=== PATIENT | female | born 1965 | race Two or more races ===

== ENCOUNTER 2019-08-11 13:51 | Emergency (ER) | payer OTHER ==
--- NOTE | 2019-08-11 14:01 | PDOC ---
Rapid Medical Evaluation Time Seen by Provider: 08/11/19 13:57 Medical Evaluation: 08/11/19 13:58 CC: chest tightness without nausea but c/o of tingling to chin, left arm Exam: vss, ekg nsr Plan: ekg, labs, cxr Discharge Disposition - Diagnosis Chest tightness - Referrals - Patient Instructions - Post Discharge Activity
[2019-08-11 14:02] VITALS: BMI 25.8
[2019-08-11] MEDS ORDERED: MAG HYDROX/AL HYDROX/SIMETH 30 ML UNIT-DOSE CUP PO ONE (14:16)
[2019-08-11] MEDS ORDERED: FAMOTIDINE 20 MG/50 ML IVPB 20 MG/50 ML MG IVPB ONE ×2 (14:16→14:29)
--- NOTE | 2019-08-11 14:26 | PDOC ---
History of Present Illness - General Chief Complaint: Chest Pain Stated Complaint: CHEST PAIN Time Seen by Provider: 08/11/19 13:57 History Source: Patient Exam Limitations: Clinical Condition - History of Present Illness Initial Comments: 08/11/19 14:21 Patient with past medical history of hypertension on lisinopril and GERD on omeprazole presented with complaint of mild epigastric pain with burning sensation after chest going up the throat since this morning. Patient been taking omeprazole sporadically given by PCP for acid reflux. Patient reported she came in today because she was feeling some mild chest tightness this morning. Denies nausea, vomiting, dizziness, sweats, arm weakness, fever or chills. Denies any other symptoms Is this a multiple visit Asthma Patient?: No Timing/Duration: 1-3 hours Past History - Medical History Allergies/Adverse Reactions: Allergies Allergy/AdvReac Type Severity Reaction Status Date / Time No Known Allergies Allergy Verified 08/11/19 14:02 Home Medications: Ambulatory Orders Famotidine [Pepcid -] 40 mg PO DAILY #7 tablet 08/11/19 Lisinopril/Hydrochlorothiazide [Lisinopril-Hctz 10-12.5 mg Tab] 1 each PO DAILY 08/11/19 COPD: No - Psycho-Social/Smoking History Smoking History: Unknown if ever smoked Review of Systems - Review of Systems Able to Perform ROS?: Yes Is the patient limited [place] Citizen proficient: No Constitutional: No: Chills, Fever, Malaise HEENTM: No: Symptoms Reported, See HPI, Eye Pain, Blurred Vision, Tearing, Recent change in vision, Double Vision, Cataracts, Ear Pain, Ocular Prothesis, Ear Discharge, Nose Pain, Nose Congestion, Tinnitus, Nose Bleeding, Hearing Loss, Throat Pain, Throat Swelling, Mouth Pain, Dental Problems, Difficulty Swallowing, Mouth Swelling, Other Respiratory: No: Symptoms reported, See HPI, Cough, Orthopnea, Shortness of Breath, SOB with Exertion, SOB at Rest, Stridor, Wheezing, Productive cough, Hemoptysis, Other Cardiac (ROS): Yes: Symptoms Reported, See HPI, Chest Tightness. No: Chest Pain, Edema, Irregular Heart Rate, Lightheadedness, Palpitations, Syncope, Other ABD/GI: Yes: Symptoms Reported, See HPI, Abdominal cramping (epigastric pain). No: Abdominal Distended, Blood Streaked Bowels, Constipated, Diarrhea, Difficulty Swallowing, Nausea, Rectal Bleeding, Vomiting, Indigestion : No: Symptoms Reported, Discharge, Frequency, Urgency Neurological: No: Symptoms reported, See HPI, Headache, Numbness, Paresthesia, Pre-Existing Deficit, Weakness, Unsteady Gait, Dizziness All Other Systems: Reviewed and Negative *Physical Exam - Vital Signs Last Vital Signs Temp Pulse Resp BP Pulse Ox 98.2 F 64 16 128/77 100 08/11/19 14:08/11/19 14:08/11/19 14:08/11/19 14:08/11/19 14:00 - Physical Exam 08/11/19 14:31 GENERAL: Well developed, well nourished. Awake and alert. No acute distress. HEENT: Normocephalic, atraumatic. PERRLA, EOMI. No conjunctival pallor. Sclera are non-icteric. Moist mucous membranes. Oropharynx is clear. NECK: Supple. Full ROM. CARDIOVASCULAR: Regular rate and rhythm. No murmurs, rubs, or gallops. Distal pulses are 2+ and symmetric. PULMONARY: No evidence of respiratory distress. Lungs clear to auscultation bilaterally. No wheezing, rales or rhonchi. ABDOMINAL: Soft. Mild epigastric tenderness. Non-distended. No rebound or guarding. No organomegaly. Normoactive bowel sounds. MUSCULOSKELETAL Normal range of motion at all joints. SKIN: Warm and dry. Normal capillary refill. No rashes. No jaundice. No cyanosis NEUROLOGICAL: Alert, awake, appropriate. Gait is normal without ataxia. PSYCHIATRIC: Cooperative. Good eye contact. Appropriate mood General Appearance: Yes: Nourished, Appropriately Dressed. No: Apparent Distress ED Treatment Course - LABORATORY CBC & Chemistry Diagram: 08/11/19 14:25 08/11/19 14:25 Medical Decision Making - Medical Decision Making 08/11/19 14:26 Patient with past medical history of hypertension on lisinopril and GERD on omeprazole presented with complaint of mild epigastric pain with burning sensation after chest going up the throat since this morning. Patient been taking omeprazole sporadically given by PCP for acid reflux. Patient reported she came in today because she was feeling some mild chest tightness this morning. Denies nausea, vomiting, dizziness, sweats, arm weakness, fever or chills. Denies any other symptoms Exam significant for mild epigastric tenderness without guarding or rebound otherwise unremarkable exam. Patient in no acute distress. Normal cardio and l dmitri exam. Patient symptoms likely acid reflux versus less likely cardiogenic pain. We will do 2 Trop cardiac work-up to make sure there is no cardiogenic symptoms. EKG shows normal sinus rhythm. Chest x-ray shows no acute abnormality. Pepcid 20 mg IV and Maalox 30 mL p.o. ordered for epigastric pain for likely GERD. Treat based on lab results 08/11/19 15:57 CBC and chemistry lab unremarkable. Cardiac profile negative. Patient asymptomatic now. Will repeat second troponin in 3 hours from first lab for confirmatory negative cardiac profile lab 08/11/19 18:21 Repeat cardiac profile negative. Patient asymptomatic now and stable for discharge with PCP follow-up as symptoms likely from GERD and will switch from omeprazole to Pepcid. Discharge - Discharge Information Problems reviewed: Yes Clinical Impression/Diagnosis: Chest tightness GERD (gastroesophageal reflux disease) Qualifiers: Esophagitis presence: esophagitis presence not specified Qualified Code(s): K21.9 - Gastro-esophageal reflux disease without esophagitis Condition: Stable Disposition: HOME - Admission No - Additional Discharge Information Prescriptions: Famotidine [Pepcid -] 40 mg PO DAILY #7 tablet - Follow up/Referral Referrals: Jamar Aguayo MD [Staff Physician] - - Patient Discharge Instructions Patient Printed Discharge Instructions: DI for Atypical Chest Pain, DI for Gastroesophageal Reflux Disease (GERD) Additional Instructions: Your blood work was normal. Your EKG was normal and a chest x-ray was normal as well. Chest discomfort is likely from acid reflux. Take prescribed medication as prescribed for the next 7 days and switch back to your regular omeprazole as directed medication after finishing Pepcid. Follow-up with your primary care - Post Discharge Activity
[2019-08-11] MEDS ORDERED: MAG HYDROX/AL HYDROX/SIMETH 30 ML UNIT-DOSE CUP ONE (14:29)
[2019-08-11 14:45] LABS: BASO % 0.3 % (0-2.0); EOS % 0.5 % (0-4.5); HEMATOCRIT 37.5 % (32.4-45.2); HEMOGLOBIN 12.8 GM/dL (10.7-15.3); LYMPH % 29.4 % (8-40); MCH 31.9 pg (25.7-33.7); MCHC 34.2 g/dl (32.0-36.0); MEAN CELL VOLUME 93.3 fl (80-96); MEAN PLT VOLUME 8.6 fl (7.5-11.1); MONO % 4.9 % (3.8-10.2); NEUT % 64.9 % (42.8-82.8); PLATELET COUNT 279 K/MM3 (134-434); RBC 4.02 M/mm3 (3.60-5.2); RDW 12.8 % (11.6-15.6); WHITE BLOOD COUNT 7.8 K/mm3 (4.0-10.0)
[2019-08-11 14:47] LABS: URINE APPEARANCE CLEAR; URINE BILIRUBIN NEGATIVE (NEGATIVE); URINE COLOR YELLOW; URINE GLUCOSE (UA) NEGATIVE (NEGATIVE); URINE KETONE NEGATIVE (NEGATIVE); URINE LEUK ESTERASE NEGATIVE (NEGATIVE); URINE NITRITE NEGATIVE (NEGATIVE); URINE PROTEIN NEGATIVE (NEGATIVE); URINE UROBILINOGEN 0.2 mg/dL (0.2-1.0)
[2019-08-11 15:16] LABS: ALBUMIN 4.1 g/dl (3.4-5.0); ALK PHOS 97 U/L (45-117); ANION GAP 4 MMOL/L (8-16); BILIRUBIN,TOTAL 0.4 mg/dL (0.2-1); BLOOD UREA NITROGEN 15.6 mg/dL (7-18); CALCIUM 9.3 mg/dL (8.5-10.1); CHLORIDE 104 mmol/L (98-107); CO2 29 mmol/L (21-32); CREATININE 0.9 mg/dL (0.55-1.3); GLUCOSE,RANDOM 157 mg/dL (74-106); MAGNESIUM 2.5 mg/dL (1.8-2.4); POTASSIUM 4.4 mmol/L (3.5-5.1); SGOT/AST 21 U/L (15-37); SGPT/ALT 34 U/L (13-61); SODIUM 138 mmol/L (136-145); TOT PROT 7.5 g/dl (6.4-8.2)
[2019-08-11] MEDS ORDERED: ACETAMINOPHEN 1000 MG/100 ML VIAL (NON FORMULARY) IVPB ONE (17:27)
[2019-08-11] MEDS ORDERED: ACETAMINOPHEN INJECTION 100 ML IVPB ONE (17:36)
[2019-08-11 18:20] VITALS: BP 155/75; PULSE 71; TEMP 98.1
--- NOTE | 2019-08-14 14:20 | EKG ---
Test Reason : Blood Pressure : / mmHG Vent. Rate : 062 BPM Atrial Rate : 062 BPM P-R Int : 172 ms QRS Dur : 082 ms QT Int : 430 ms P-R-T Axes : 052 033 050 degrees QTc Int : 436 ms NORMAL SINUS RHYTHM NORMAL ECG NO PREVIOUS ECGS AVAILABLE Confirmed by MARLON VILLASEÑOR MD ([id number]) on 08/14/2019 2:20:22 PM Referred By: Confirmed By:MARLON VILLASEÑOR MD
== END 2019-08-11 18:37 | disposition home or self-care (01) ==
LOC: JER 13:51
PROC: 3E033GC Introduction of Other Therapeutic Substance into Peripheral Vein, Percutaneous Approach (ICD-10-PCS; principal; 2019-08-11)
DX: K21.9 Gastro-esophageal reflux disease without esophagitis (principal)
CPT/HCPCS: 36415; 71045-TC-FY; 80053; 81003; 82550; 82553; 83735; 84484; 85025; 93005; 93010; 99285-25; J0131